=== PATIENT | female | born 1985 | race Two or more races ===

== ENCOUNTER 2020-09-04 14:35 | Outpatient (REF) | payer MEDICAID, SELFPAY | END 2020-09-04 14:36 | disposition home or self-care (01) | LOC: HO.LAB 14:35 | PROVIDERS: Visit Provider Internal Medicine | DX: Z20.822 Contact with and (suspected) exposure to COVID-19 (principal) | CPT/HCPCS: 36415; C9803; U0003; U0005 ==

== ENCOUNTER 2020-09-15 12:52 | Outpatient (REF) | payer MEDICAID, SELFPAY ==
[2020-09-16 09:51] LABS: SARS COV2 PCR INHOUSE POSITIVE (Negative)
== END 2020-09-15 12:53 | disposition home or self-care (01) ==
LOC: HO.LAB 12:52
PROVIDERS: Visit Provider Internal Medicine
DX: Z20.822 Contact with and (suspected) exposure to COVID-19 (principal)
CPT/HCPCS: C9803; U0003

== ENCOUNTER 2022-06-10 03:43 | Emergency (ER) | payer MEDICAID, SELFPAY ==
--- NOTE | 2022-06-10 | ECG_ITS ---
Test Reason : SOB Blood Pressure : / mmHG Vent. Rate : 093 BPM Atrial Rate : 093 BPM P-R Int : 138 ms QRS Dur : 072 ms QT Int : 388 ms P-R-T Axes : 053 058 020 degrees QTc Int : 482 ms Normal sinus rhythm Normal ECG When compared with ECG of 11-NOV-2019 23:24, Nonspecific T wave abnormality no longer evident in Anterolateral leads Referred By: Generic ED Physician Electronically Signed By:DEDRA SCHMIDT MD
[2022-06-10 03:45] VITALS: BP 111/77; PULSE 83; RESP 20; TEMP 36.4; O2SAT 100; BMI 24.9
[2022-06-10 04:07] LABS: MANUAL DIFF FLAG NO
[2022-06-10 04:13] LABS: Basophils Absolute Auto 0.1 X10*3/uL (0.0-0.2); Eosinophils Absolute Auto 0.1 X10*3/uL (0.0-0.4); Eosinophils Percent Auto 1.5 % (0-4); Hematocrit 29.3 % (37.0-47.0); Hemoglobin 8.5 g/dl (12.0-16.0); Imm Gran Abs Auto 0.02 X10*3/uL (0.00-0.03); Imm Gran Pct Auto 0.3 % (0.0-0.4); Lymphocytes Absolute Auto 2.6 X10*3/uL (1.2-4.9); Lymphocytes Percent Auto 37.9 % (20-40); Mean Corpuscular Volume 68.9 fL (80.0-98.0); Mean Platelet Volume 8.9 fL (9.4-12.3); Monocytes Absolute Auto 0.6 X10*3/uL (0.1-1.2); Monocytes Percent Auto 8.5 % (2-11); Neutrophils Absolute Auto 3.5 x10*3/uL (2.0-8.3); Neutrophils Percent Auto 50.8 % (45-73); Platelet Count 412 X10*3/uL (160-400); Red Blood Count 4.25 X10*6/uL (4.20-5.50); Red Cell Distribution Width 17.2 % (11.0-16.0); White Blood Count 6.8 X10*3/uL (4.8-10.8)
[2022-06-10 04:26] LABS: Anion Gap 11 (12-20); Blood Urea Nitrogen 11 mg/dL (9-16); Calcium 8.8 mg/dL (8.4-10.2); Carbon Dioxide 23 mmol/L (22-29); Chloride 108 mmol/L (96-108); Estimated Glomerular Filt Rate > 60; Glucose Random 100 mg/dL (60-115); Potassium 4.2 mmol/L (3.3-5.1); Sodium 138 mmol/L (135-145)
[2022-06-10 04:30] LABS: Troponin-I High Sensitivity < 3.5 ng/L (<3.5-17.0)
--- NOTE | 2022-06-10 07:05 | ED.SOB ---
HPI - SOB/Dyspnea General Chief Complaint: Dyspnea Stated Complaint: Sob Time Seen by Provider: 06/10/22 06:29 Source: patient and physician ophthalmologist Mode of arrival: ambulatory History of Present Illness HPI Narrative: 37-year-old female without significant past medical history presents with 2 days of mild shortness of breath that she denies is associated with any cough, sore throat, fever, chills, nausea, vomiting, at recent travel, use of OCPs or smoking of cigarettes. Related Data Allergies Allergy/AdvReac Type Severity Reaction Status Date / Time Penicillins [PCN] Allergy Unknown RASH Verified 06/10/22 03:50 Review of Systems Review of Systems: Pertinent positives and negatives as stated in HPI. [facility] Past Medical History Source: nursing notes reviewed Social History Social History Advance Directives: No Advance Directives Information Provided: Yes Physical Exam Vital Signs: Vital Signs: Last Vital Signs Temp 97.5 F 06/10/22 07:15 Pulse 72 06/10/22 07:15 Resp 18 06/10/22 07:15 BP 97/63 06/10/22 07:15 Pulse Ox 100 06/10/22 07:15 O2 Del Method 06/10/22 07:15 BMI result Body Mass Index 24.9 VITAL SIGNS: Reviewed. GENERAL: Well developed, well nourished, in no acute distress. HEAD: Normocephalic/atraumatic EYES: PERRLA, EOMI EARS: Ext canals without abnormality, TMs non-bulging and non-erythematous NOSE: Nares patent bilateral OROPHARYNX: no oral lesions noted, posterior pharynx clear and non-erythematous without noted tonsillar enlargement/erythema/exudates NECK: Supple, no adenopathy LUNGS: Normal breath sounds. No adventitious sounds or accessory muscle use. SpO2<100> CARDIOVASCULAR: Regular rate and rhythm without noted murmurs ABDOMEN: Soft, non-tender, non-distended with bowel sounds. SKIN: Inspection of the skin reveals no rashes NEUROLOGIC: Alert and oriented x 4. Medical Decision Making Medical Decision Making MDM Narrative: PERC negative 37-year-old female with presentation most suggestive of possible viral etiology as she has no history of asthma or cigarette smoking. 0729: I reviewed all laboratory investigations and I do note that patient's hemoglobin is 8.5 but she is not hypotensive nor she tachycardic and will need further workup at her primary care office. All viral testing is negative and there is no evidence of leukocytosis or left shift, chemistries are within normal limits. All results discussed with the patient via cell efficiency supervisor she is discharged home in stable condition with requested follow-up with her primary care provider. Differential Diagnosis Differential Diagnoses: The differential diagnosis associated with the presentation includes I will rule out infectious, viral illness, and doubt any cardiopulmonary etiology. Lab Data MDM Lab Attestation statement: I reviewed the patient's lab results. Please see the discussion above Result Diagrams: 06/10/22 04:03 06/10/22 04:03 Labs: Lab Results 06/10/22 06/10/22 06/10/22 Range/Units 04:03 04:03 04:03 WBC 6.8 (4.8-10.8) X10*3/uL RBC 4.25 (4.20-5.50) X10*6/uL Hgb 8.5 L (12.0-16.0) g/dl Hct 29.3 L (37.0-47.0) % MCV 68.9 L (80.0-98.0) fL MCH 20.0 L (27.0-33.0) pg MCHC 29.0 L (31.0-35.0) g/dl RDW 17.2 H (11.0-16.0) % Plt Count 412 H (160-400) X10*3/uL MPV 8.9 L (9.4-12.3) fL Immature Gran % (Auto) 0.3 (0.0-0.4) % Neut % (Auto) 50.8 (45-73) % Lymph % (Auto) 37.9 (20-40) % [place] % (Auto) 8.5 (2-11) % Eos % (Auto) 1.5 (0-4) % Baso % (Auto) 1.0 (0-2) % Lymph # (Auto) 2.6 (1.2-4.9) X10*3/uL [place] # (Auto) 0.6 (0.1-1.2) X10*3/uL Eos # (Auto) 0.1 (0.0-0.4) X10*3/uL Baso # (Auto) 0.1 (0.0-0.2) X10*3/uL Abs Immat Gran (auto) 0.02 (0.00-0.03) X10*3/uL Absolute Neuts (auto) 3.5 (2.0-8.3) x10*3/uL Absolute Nucleated RBC 0.000 (0.0-0.012) X10*3/uL Nucleated RBC % (auto) 0.0 (0.0-0.2) /100WBC Sodium 138 (135-145) mmol/L Potassium 4.2 (3.3-5.1) mmol/L Chloride 108 (96-108) mmol/L Carbon Dioxide 23 (22-29) mmol/L Anion Gap 11 L (12-20) BUN 11 (9-16) mg/dL Creatinine 0.75 (0.5-1.4) mg/dL Estim Creat Clear Calc 87.0 Estimated GFR > 60 Random Glucose 100 (60-115) mg/dL Calcium 8.8 (8.4-10.2) mg/dL Troponin I High Sens < 3.5 (<3.5-17.0) ng/L COVID-19 (JOSE) (Negative) COVID-19 Clin Com Influenza Type A (ALESHA) (Negative) Influenza Type B (ALESHA) (Negative) Influenza A & B Note 06/10/22 06/10/22 Range/Units 06:38 06:38 WBC (4.8-10.8) X10*3/uL RBC (4.20-5.50) X10*6/uL Hgb (12.0-16.0) g/dl Hct (37.0-47.0) % MCV (80.0-98.0) fL MCH (27.0-33.0) pg MCHC (31.0-35.0) g/dl RDW (11.0-16.0) % Plt Count (160-400) X10*3/uL MPV (9.4-12.3) fL Immature Gran % (Auto) (0.0-0.4) % Neut % (Auto) (45-73) % Lymph % (Auto) (20-40) % [place] % (Auto) (2-11) % Eos % (Auto) (0-4) % Baso % (Auto) (0-2) % Lymph # (Auto) (1.2-4.9) X10*3/uL [place] # (Auto) (0.1-1.2) X10*3/uL Eos # (Auto) (0.0-0.4) X10*3/uL Baso # (Auto) (0.0-0.2) X10*3/uL Abs Immat Gran (auto) (0.00-0.03) X10*3/uL Absolute Neuts (auto) (2.0-8.3) x10*3/uL Absolute Nucleated RBC (0.0-0.012) X10*3/uL Nucleated RBC % (auto) (0.0-0.2) /100WBC Sodium (135-145) mmol/L Potassium (3.3-5.1) mmol/L Chloride (96-108) mmol/L Carbon Dioxide (22-29) mmol/L Anion Gap (12-20) BUN (9-16) mg/dL Creatinine (0.5-1.4) mg/dL Estim Creat Clear Calc Estimated GFR Random Glucose (60-115) mg/dL Calcium (8.4-10.2) mg/dL Troponin I High Sens (<3.5-17.0) ng/L COVID-19 (JOSE) Negative (Negative) COVID-19 Clin Com See Note Influenza Type A (ALESHA) Negative (Negative) Influenza Type B (ALESHA) Negative (Negative) Influenza A & B Note See Note Independent Interpretation I performed an independent interpretation of an: EKG Interpretation: Normal sinus rhythm, HR-93, no STEMI, [place]/QRS/QTC is within normal limits. Discharge Plan Discharge Clinical Impression: Shortness of breath, Anemia Patient Disposition: Home, Self-Care Instructions: Anemia (ED), Shortness of Breath (ED) Additional Instructions: 1. Se nota que tiene anemia, a veces puede deberse a per?odos menstruales abundantes y, a menudo, la recomendaci?n es comenzar a donna p?ldoras de yolanda. 2. Debe llamar a la cl?jeferson hoy para programar alyse palma para alyse reevaluaci?n y un manejo ambulatorio adicional. Regrese a la zachary de emergencias por cualquier empeoramiento de los s?ntomas. 1. You are noted to have anemia, sometimes is can be due to heavy menstrual periods and often times the recommendation is for initiation of iron pills. 2. You should call the clinic today to schedule an appointment for re-evaluation and further outpatient management. Return to the ER for any worsening of symptoms. Referrals: [place],[facility] [Primary Care Provider] - (Has anemia will likely need to be started on iron pills.) Print Language: Cypriot
[2022-06-10 07:12] LABS: COVID-19 Test Negative (Negative); IDNOW Serial# 55D5AD1C
[2022-06-10 07:15] VITALS: BP 97/63; PULSE 72; RESP 18; TEMP 36.4; O2SAT 100
[2022-06-10 07:17] LABS: IDNOW Serial# 9DB6401D; Influenza A Negative (Negative); Influenza B2 Negative (Negative)
== END 2022-06-10 07:41 | disposition home or self-care (01) ==
PROVIDERS: Emergency Provider Student in an Organized Health Care Education/Training Program
DX: R06.02 Shortness of breath (principal); D64.9 Anemia, unspecified; Z20.822 Contact with and (suspected) exposure to COVID-19; Z79.899 Other long term (current) drug therapy
CPT/HCPCS: 36415; 80048; 84484; 85025; 87502; 87635; 93005; 99283; 99284

== ENCOUNTER 2022-06-16 08:40 | Emergency (ER) | payer MEDICAID, SELFPAY ==
--- NOTE | 2022-06-16 | ECG_ITS ---
Test Reason : chest pain Blood Pressure : / mmHG Vent. Rate : 081 BPM Atrial Rate : 081 BPM P-R Int : 146 ms QRS Dur : 068 ms QT Int : 382 ms P-R-T Axes : 051 047 034 degrees QTc Int : 443 ms Normal sinus rhythm Normal ECG When compared with ECG of 10-JUN-2022 03:52, No significant change was found Referred By: Generic ED Physician Electronically Signed By:NOAH JOAQUIN
--- NOTE | ~2022-06-16 | XR_ITS ---
EXAMINATION: XR CHEST CLINICAL INFORMATION: Shortness of breath and cough COMPARISON: 10/05/2018 TECHNIQUE: 2 views of the chest were obtained. FINDINGS: No significant abnormality is noted involving the heart, lungs, mediastinum, bony thorax or soft tissues. XR/XR chest 2V IMPRESSION: Unremarkable examination.
[2022-06-16 08:41] VITALS: BP 117/79; PULSE 83; RESP 18; TEMP 36.3; O2SAT 98; BMI 27.3
[2022-06-16 09:03] LABS: MANUAL DIFF FLAG NO
[2022-06-16 09:04] LABS: Basophils Absolute Auto 0.1 X10*3/uL (0.0-0.2); Eosinophils Absolute Auto 0.1 X10*3/uL (0.0-0.4); Eosinophils Percent Auto 1.3 % (0-4); Hematocrit 30.3 % (37.0-47.0); Hemoglobin 8.9 g/dl (12.0-16.0); Imm Gran Abs Auto 0.04 X10*3/uL (0.00-0.03); Imm Gran Pct Auto 0.6 % (0.0-0.4); Lymphocytes Absolute Auto 2.4 X10*3/uL (1.2-4.9); Lymphocytes Percent Auto 34.6 % (20-40); Mean Corpuscular HGB Conc 29.4 g/dl (31.0-35.0); Mean Corpuscular Hemoglobin 20.6 pg (27.0-33.0); Mean Corpuscular Volume 70.3 fL (80.0-98.0); Mean Platelet Volume 8.8 fL (9.4-12.3); Monocytes Absolute Auto 0.6 X10*3/uL (0.1-1.2); Monocytes Percent Auto 8.8 % (2-11); Neutrophils Absolute Auto 3.7 x10*3/uL (2.0-8.3); Neutrophils Percent Auto 53.7 % (45-73); Platelet Count 347 X10*3/uL (160-400); Red Blood Count 4.31 X10*6/uL (4.20-5.50); Red Cell Distribution Width 19.8 % (11.0-16.0)
[2022-06-16 09:21] LABS: Alanine Aminotransferase 10 U/L (0-31); Albumin Level 3.7 g/dL (3.5-5.0); Alkaline Phosphatase 61 U/L (39-117); Anion Gap 11 (12-20); Aspartate Amino Transferase 13 U/L (5-31); Bilirubin Total 0.2 mg/dL (0.0-1.0); Blood Urea Nitrogen 8 mg/dL (9-16); Calcium 8.9 mg/dL (8.4-10.2); Carbon Dioxide 23 mmol/L (22-29); Chloride 110 mmol/L (96-108); Creatinine Clr Calc Pharmacy 103.6; Estimated Glomerular Filt Rate > 60; Glucose Random 94 mg/dL (60-115); Potassium 4.7 mmol/L (3.3-5.1); Sodium 139 mmol/L (135-145); Total Protein 6.6 g/dL (6.5-8.0)
--- NOTE | 2022-06-16 09:46 | ED.GENADULT ---
HPI - General Adult General Chief complaint: General Medical Stated complaint: CP Time Seen by Provider: 06/16/22 09:44 Source: patient and family Mode of arrival: ambulatory Limitations: no limitations Related Data Previous Rx's Medication Instructions Recorded ferrous sulfate 325 mg (65 mg 325 mg PO DAILY #90 tabs 06/16/22 iron) tablet (Iron (ferrous sulfate)) Allergies Allergy/AdvReac Type Severity Reaction Status Date / Time Penicillins [PCN] Allergy Unknown RASH Verified 06/16/22 08:50 Review of Systems Review of Systems: Review of systems: General: Patient denies any fever chills recent illness or falls Musculoskeletal: Denies back pain or body aches or other injuries HEENT: denies headache, runny nose, ear pain Respiratory: shortness of breath, cough Cardiovascular: no chest pain or palpitations : denies dysuria, frequency Abdomen: no nausea vomiting denies abdominal pain Extremities: no swelling, no pain Skin: no diaphoresis Yes all other systems are reviewed and are negative PMFSH Social History Social History Advance Directives: No Advance Directives Information Provided: Yes Physical Exam ED Vital Signs: Vital Signs - 24 hr 06/16/22 08:41 Temperature 97.4 F Pulse Rate 83 Respiratory Rate 18 Blood Pressure 117/79 Pulse Oximetry 98 Oxygen Delivery Method Room Air BMI result Body Mass Index 27.3 General: Well-appearing well-nourished in no signs of distress HEENT: Normocephalic atraumatic Neck: No signs of JVD, no masses no tenderness or lymphadenopathy Cardiovascular: Regular rate and rhythm Respiratory: Clear to auscultation bilaterally Abdomen: Soft nontender no masses rectal exam performed guiac negative quality system manager confirmed. Extremities: Normal pedal pulses no signs of edema Skin: Dry warm no rashes Back: No tenderness full ROM Medical Decision Making Medical Decision Making [facility] Narrative: XR is normal anemia is improved I will start on iron sulfate and discharge the patient home with PCp christopher falk. Differential Diagnosis Differential Diagnoses: The differential diagnosis associated with the presentation includes Anemia PE, pneumonia. Unlikely PE with normal vitals no signs of respiratory distress not tachycardic or hypoxic, pneumonia this time as she is complaining of cough. Anemia most likely but is improved. She has an appointment next week I will start her on iron. Lab Data [facility] Lab Attestation statement: I reviewed the patient's lab results. Result Diagrams: 06/16/22 08:56 06/16/22 08:56 Labs: Lab Results 06/16/22 06/16/22 Range/Units 08:56 08:56 WBC 7.0 (4.8-10.8) X10*3/uL RBC 4.31 (4.20-5.50) X10*6/uL Hgb 8.9 L (12.0-16.0) g/dl Hct 30.3 L (37.0-47.0) % MCV 70.3 L (80.0-98.0) fL MCH 20.6 L (27.0-33.0) pg MCHC 29.4 L (31.0-35.0) g/dl RDW 19.8 H (11.0-16.0) % Plt Count 347 (160-400) X10*3/uL MPV 8.8 L (9.4-12.3) fL Immature Gran % (Auto) 0.6 H (0.0-0.4) % Neut % (Auto) 53.7 (45-73) % Lymph % (Auto) 34.6 (20-40) % [place] % (Auto) 8.8 (2-11) % Eos % (Auto) 1.3 (0-4) % Baso % (Auto) 1.0 (0-2) % Lymph # (Auto) 2.4 (1.2-4.9) X10*3/uL [place] # (Auto) 0.6 (0.1-1.2) X10*3/uL Eos # (Auto) 0.1 (0.0-0.4) X10*3/uL Baso # (Auto) 0.1 (0.0-0.2) X10*3/uL Abs Immat Gran (auto) 0.04 H (0.00-0.03) X10*3/uL Absolute Neuts (auto) 3.7 (2.0-8.3) x10*3/uL Absolute Nucleated RBC 0.000 (0.0-0.012) X10*3/uL Nucleated RBC % (auto) 0.0 (0.0-0.2) /100WBC Sodium 139 (135-145) mmol/L Potassium 4.7 (3.3-5.1) mmol/L Chloride 110 H (96-108) mmol/L Carbon Dioxide 23 (22-29) mmol/L Anion Gap 11 L (12-20) BUN 8 L (9-16) mg/dL Creatinine 0.74 (0.5-1.4) mg/dL Estim Creat Clear Calc 103.6 Estimated GFR > 60 Random Glucose 94 (60-115) mg/dL Calcium 8.9 (8.4-10.2) mg/dL Total Bilirubin 0.2 (0.0-1.0) mg/dL AST 13 (5-31) U/L ALT 10 (0-31) U/L Alkaline Phosphatase 61 (39-117) U/L Total Protein 6.6 (6.5-8.0) g/dL Albumin 3.7 (3.5-5.0) g/dL Independent Interpretation I performed an independent interpretation of an: EKG Interpretation: Rate 81 no change from previous no signs of ischemia normal intervals Radiology Impression Discussion of test interpretation with radiology: I have reviewed the radiologist's reading. Radiologist Impression: XR is unremarkable Discharge Plan Discharge Clinical Impression: Shortness of breath, Anemia Patient Disposition: Home, Self-Care Instructions: Anemia (ED), Shortness of Breath (ED) Additional Instructions: Por favor sigue al palma con paulino doctor. Tambien necesita donna los pastillas de iron. Si tiene dolor de [place] or si siente que le falta mas aire por favor regresa al hospital Prescriptions: New ferrous sulfate [Iron (ferrous sulfate)] 325 mg (65 mg iron) tablet 325 mg PO DAILY Qty: 90 0RF Stand Alone Forms: Work/School Release Print Language: Ethiopian
[2022-06-16 10:23] VITALS: BP 100/53; PULSE 69; RESP 16; TEMP 36.6; O2SAT 99
== END 2022-06-16 10:33 | disposition home or self-care (01) ==
PROVIDERS: Emergency Provider Student in an Organized Health Care Education/Training Program
DX: R07.89 Other chest pain (principal); R06.02 Shortness of breath; D64.9 Anemia, unspecified; Z79.899 Other long term (current) drug therapy
CPT/HCPCS: 36415; 71046; 80053; 85025; 93005; 99283; 99284

== ENCOUNTER 2022-06-22 23:52 | Emergency (ER) | payer MEDICAID, SELFPAY ==
[2022-06-22 23:54] VITALS: BP 122/70; PULSE 104; RESP 20; TEMP 36.6; O2SAT 100; BMI 25.7
--- NOTE | 2022-06-23 | ECG_ITS ---
Test Reason : chest pain Blood Pressure : / mmHG Vent. Rate : 105 BPM Atrial Rate : 105 BPM P-R Int : 132 ms QRS Dur : 072 ms QT Int : 370 ms P-R-T Axes : 057 060 003 degrees QTc Int : 489 ms Sinus tachycardia Nonspecific T wave abnormality Abnormal ECG When compared with ECG of 16-JUN-2022 08:50, Nonspecific T wave abnormality now evident in Lateral leads Referred By: Generic ED Physician Electronically Signed By:Benji Stephen
[2022-06-23 00:10] LABS: MANUAL DIFF FLAG NO
[2022-06-23 00:12] LABS: Basophils Absolute Auto 0.1 X10*3/uL (0.0-0.2); Basophils Percent Auto 0.9 % (0-2); Eosinophils Absolute Auto 0.1 X10*3/uL (0.0-0.4); Eosinophils Percent Auto 1.5 % (0-4); Hematocrit 35.7 % (37.0-47.0); Hemoglobin 10.9 g/dl (12.0-16.0); Imm Gran Abs Auto 0.03 X10*3/uL (0.00-0.03); Imm Gran Pct Auto 0.3 % (0.0-0.4); Lymphocytes Absolute Auto 2.7 X10*3/uL (1.2-4.9); Lymphocytes Percent Auto 30.1 % (20-40); Mean Corpuscular HGB Conc 30.5 g/dl (31.0-35.0); Mean Corpuscular Hemoglobin 22.1 pg (27.0-33.0); Mean Corpuscular Volume 72.4 fL (80.0-98.0); Mean Platelet Volume 9.2 fL (9.4-12.3); Monocytes Absolute Auto 0.6 X10*3/uL (0.1-1.2); Monocytes Percent Auto 6.4 % (2-11); Neutrophils Absolute Auto 5.5 x10*3/uL (2.0-8.3); Neutrophils Percent Auto 60.8 % (45-73); Platelet Count 388 X10*3/uL (160-400); Red Blood Count 4.93 X10*6/uL (4.20-5.50); Red Cell Distribution Width 23.9 % (11.0-16.0); White Blood Count 9.1 X10*3/uL (4.8-10.8)
[2022-06-23 00:31] LABS: Alanine Aminotransferase 15 U/L (0-31); Albumin Level 4.2 g/dL (3.5-5.0); Alkaline Phosphatase 62 U/L (39-117); Anion Gap 10 (12-20); Aspartate Amino Transferase 15 U/L (5-31); Bilirubin Total 0.3 mg/dL (0.0-1.0); Blood Urea Nitrogen 12 mg/dL (9-16); Calcium 9.2 mg/dL (8.4-10.2); Carbon Dioxide 24 mmol/L (22-29); Chloride 107 mmol/L (96-108); Creatinine Clr Calc Pharmacy 90.5; Estimated Glomerular Filt Rate > 60; Glucose Random 105 mg/dL (60-115); Potassium 3.7 mmol/L (3.3-5.1); Sodium 137 mmol/L (135-145); Total Protein 7.6 g/dL (6.5-8.0)
[2022-06-23 00:49] VITALS: O2SAT 100
[2022-06-23 00:50] LABS: Influenza A PCR NEGATIVE (Negative); Influenza B PCR NEGATIVE (Negative); Resp Syncy Virus RNA Qual PCR NEGATIVE (Negative); SARS COV2 PCR INHOUSE NEGATIVE (Negative)
--- NOTE | 2022-06-23 01:01 | ED.URI ---
HPI - URI/Sore Throat General Chief Complaint: Upper Respiratory Symptoms Stated Complaint: CP, congestion Time Seen by Provider: 06/23/22 00:45 Source: patient Mode of arrival: ambulatory Limitations: no limitations History of Present Illness HPI Narrative: Patient with history of anemia on iron tablets with history of chronic back pain comes here for cough congestion for last few days feel short of breath when ambulates with chest tightness and back pain patient previous hemoglobin was 8.9 on 06/16/2022 today hemoglobin is 10.9 patient denies any palpitation no leg swelling or pain no fever or chills Related Data Previous Rx's Medication Instructions Recorded ferrous sulfate 325 mg (65 mg 325 mg PO DAILY #90 tabs 06/16/22 iron) tablet (Iron (ferrous sulfate)) benzonatate 200 mg capsule 200 mg PO TID PRN cough #20 caps 06/23/22 cyclobenzaprine 10 mg tablet 10 mg PO Q8H #20 tabs 06/23/22 tramadol 50 mg tablet 50 mg PO Q6H PRN pain #20 tabs 06/23/22 Allergies Allergy/AdvReac Type Severity Reaction Status Date / Time Penicillins [PCN] Allergy Unknown RASH Verified 06/23/22 00:09 Review of Systems Review of Systems: Yes all other systems are reviewed and are negative [facility] Social History Social History Alcohol intake: never Smoked in Last 30 Days: No Use of substances other than those prescribed or required for medical reasons: No Advance Directives: No Patient : No Physical Exam Vital Signs: Vital Signs: Last Vital Signs Temp 97.5 F 06/23/22 01:09 Pulse 78 06/23/22 01:09 Resp 16 06/23/22 01:09 BP 113/74 06/23/22 01:09 Pulse Ox 100 06/23/22 01:09 O2 Del Method 06/23/22 01:09 BMI result Body Mass Index 25.7 Appearance: Alert. Oriented X3. No acute distress. Eyes: Pallor ENT: Pharynx normal. Oral Mucosa moist Neck: Normal inspection. Neck supple. CVS: Normal heart rate and rhythm. Pulses normal. Respiratory: No respiratory distress. Equal air entry bilateral, prolonged expiration Abdomen: Soft and nontender. Bowel sounds are present, no mass palpable, Skin: Skin warm and dry. Normal skin color. Normal skin turgor. Extremities: No lower extremity edema. No calf tenderness diffuse lower back tenderness no midline spinal tenderness SLR negative bilaterally Neuro: Oriented X 3. No motor deficit. Medical Decision Making Lab Data [facility] Lab Attestation statement: I reviewed the patient's lab results. 06/23/22 00:05 06/23/22 00:05 Labs: Lab Results 06/23/22 06/23/22 06/23/22 Range/Units 00:05 00:05 00:05 WBC 9.1 (4.8-10.8) X10*3/uL RBC 4.93 (4.20-5.50) X10*6/uL Hgb 10.9 L D (12.0-16.0) g/dl Hct 35.7 L (37.0-47.0) % MCV 72.4 L (80.0-98.0) fL MCH 22.1 L (27.0-33.0) pg MCHC 30.5 L (31.0-35.0) g/dl RDW 23.9 H (11.0-16.0) % Plt Count 388 (160-400) X10*3/uL MPV 9.2 L (9.4-12.3) fL Immature Gran % (Auto) 0.3 (0.0-0.4) % Neut % (Auto) 60.8 (45-73) % Lymph % (Auto) 30.1 (20-40) % [place] % (Auto) 6.4 (2-11) % Eos % (Auto) 1.5 (0-4) % Baso % (Auto) 0.9 (0-2) % Lymph # (Auto) 2.7 (1.2-4.9) X10*3/uL [place] # (Auto) 0.6 (0.1-1.2) X10*3/uL Eos # (Auto) 0.1 (0.0-0.4) X10*3/uL Baso # (Auto) 0.1 (0.0-0.2) X10*3/uL Abs Immat Gran (auto) 0.03 (0.00-0.03) X10*3/uL Absolute Neuts (auto) 5.5 (2.0-8.3) x10*3/uL Absolute Nucleated RBC 0.000 (0.0-0.012) X10*3/uL Nucleated RBC % (auto) 0.0 (0.0-0.2) /100WBC Sodium 137 (135-145) mmol/L Potassium 3.7 D (3.3-5.1) mmol/L Chloride 107 (96-108) mmol/L Carbon Dioxide 24 (22-29) mmol/L Anion Gap 10 L (12-20) BUN 12 (9-16) mg/dL Creatinine 0.73 (0.5-1.4) mg/dL Estim Creat Clear Calc 90.5 Estimated GFR > 60 Random Glucose 105 (60-115) mg/dL Calcium 9.2 (8.4-10.2) mg/dL Total Bilirubin 0.3 (0.0-1.0) mg/dL AST 15 (5-31) U/L ALT 15 (0-31) U/L Alkaline Phosphatase 62 (39-117) U/L Total Protein 7.6 (6.5-8.0) g/dL Albumin 4.2 (3.5-5.0) g/dL Influenza Type A (PCR) NEGATIVE (Negative) Influenza Type B (PCR) NEGATIVE (Negative) RSV RNA Qual (PCR) NEGATIVE (Negative) SARS-CoV-2 RNA (RT-PCR) NEGATIVE (Negative) Independent Interpretation I performed an independent interpretation of an: EKG Interpretation: Sinus tachycardia heart rate [address] T wave changes no acute ischemia Discharge Plan Discharge Clinical Impression: Acute bronchitis, Chronic back pain Patient Disposition: Home, Self-Care Instructions: Acute Bronchitis (ED), Chronic Back Pain (DC) Additional Instructions: Continue iron tablet daily as prescribed by PCP Cough drops as prescribed Pain medication muscle relaxant as prescribed Follow with PCP Your chest x-ray negative for pneumonia Your COVID/flu/RSV negative Contin?e con la tableta de yolanda diariamente seg?n lo prescrito por el PCP Pastillas para la tos seg?n lo prescrito Medicamentos para el dolor relajantes musculares seg?n lo prescrito Seguir con PCP Lopes radiograf?a de t?rax negativa para neumon?a. Lopes COVID/gripe/RSV negativo Prescriptions: New cyclobenzaprine 10 mg tablet 10 mg PO Q8H Qty: 20 0RF benzonatate 200 mg capsule 200 mg PO TID PRN (Reason: cough) Qty: 20 0RF tramadol 50 mg tablet 50 mg PO Q6H PRN (Reason: pain) Qty: 20 0RF No Action ferrous sulfate [Iron (ferrous sulfate)] 325 mg (65 mg iron) tablet 325 mg PO DAILY Qty: 90 0RF Print Language: Slovak
[2022-06-23 01:09] VITALS: BP 113/74; PULSE 78; RESP 16; TEMP 36.4; O2SAT 100
[2022-06-23] MEDS: traMADoL HCL 50 MG TABLET PO (01:20)
--- NOTE | 2022-06-23 01:20 | PC.NURSE ---
PT A&Ox4, reports chest tightness, stuffy nose, abd 9/10 back pain. VSS. Meds given as documented.
[2022-06-23] MEDS: Benzonatate 100 MG CAPSULE 200 MG PO (01:21)
[2022-06-23] MEDS: Cyclobenzaprine HCl 10 MG TABLET PO (01:21)
== END 2022-06-23 01:28 | disposition home or self-care (01) ==
PROVIDERS: Emergency Provider Internal Medicine
DX: J20.9 Acute bronchitis, unspecified (principal); G89.29 Other chronic pain; M54.50 Low back pain, unspecified; Z20.822 Contact with and (suspected) exposure to COVID-19; Z20.828 Contact with and (suspected) exposure to other viral communicable diseases
CPT/HCPCS: 0241U; 36415; 80053; 85025; 93005; 99283; 99285

== ENCOUNTER 2022-08-30 21:26 | Emergency (ER) | payer MEDICAID, SELFPAY ==
[2022-08-30 21:56] VITALS: BP 113/73; PULSE 96; RESP 20; TEMP 36.8; O2SAT 100; BMI 29.5
[2022-08-30 22:22] LABS: MANUAL DIFF FLAG NO
[2022-08-30 22:23] LABS: Basophils Absolute Auto 0.1 X10*3/uL (0.0-0.2); Basophils Percent Auto 0.6 % (0-2); Eosinophils Absolute Auto 0.1 X10*3/uL (0.0-0.4); Eosinophils Percent Auto 0.9 % (0-4); Hematocrit 35.2 % (37.0-47.0); Hemoglobin 11.6 g/dl (12.0-16.0); Imm Gran Abs Auto 0.03 X10*3/uL (0.00-0.03); Imm Gran Pct Auto 0.3 % (0.0-0.4); Lymphocytes Absolute Auto 2.6 X10*3/uL (1.2-4.9); Lymphocytes Percent Auto 25.9 % (20-40); Mean Corpuscular Hemoglobin 26.5 pg (27.0-33.0); Mean Corpuscular Volume 80.5 fL (80.0-98.0); Mean Platelet Volume 8.8 fL (9.4-12.3); Monocytes Absolute Auto 0.7 X10*3/uL (0.1-1.2); Monocytes Percent Auto 6.9 % (2-11); Neutrophils Absolute Auto 6.5 x10*3/uL (2.0-8.3); Neutrophils Percent Auto 65.4 % (45-73); Platelet Count 365 X10*3/uL (160-400); Red Blood Count 4.37 X10*6/uL (4.20-5.50); Red Cell Distribution Width 15.3 % (11.0-16.0); White Blood Count 9.9 X10*3/uL (4.8-10.8)
[2022-08-30 22:39] LABS: Anion Gap 14 (12-20); Blood Urea Nitrogen 15 mg/dL (9-16); Calcium 8.7 mg/dL (8.4-10.2); Carbon Dioxide 21 mmol/L (22-29); Chloride 108 mmol/L (96-108); Creatinine Clr Calc Pharmacy 81.2; Estimated Glomerular Filt Rate > 60; Glucose Random 92 mg/dL (60-115); Potassium 3.7 mmol/L (3.3-5.1); Sodium 139 mmol/L (135-145)
[2022-08-31] MEDS: Ibuprofen 400 MG TABLET PO (01:08)
[2022-08-31] MEDS: Acetaminophen 325 MG TABLET 975 MG PO (01:08)
--- NOTE | 2022-08-31 01:12 | ED_ITS ---
HPI - Female Genitourinary General Chief complaint: Vaginal Bleeding Stated complaint: Vaginal bleeding Time Seen by Provider: 08/31/22 00:30 Source: patient and family (, Abner) Mode of arrival: ambulatory Limitations: language barrier (Patient's 1st language is Portuguese, she does understands some Kazakh, process pumper on the iPad was used) History of Present Illness HPI Narrative: 37-year-old female who presents emergency department for evaluation of dysfunctional bilateral bleeding. She states that her menstrual periods were regular every 28 days but she was having severe bleeding with significant cramping. She was found to have a low hemoglobin of 6. Her doctor treated her with Depo-Provera and iron. She states that since getting the Depo-Provera shot July 2022, her bleeding has been very heavy and irregular. She states that over the past several days she has been going through 4-5 pads per 6 hours and she has been soaking through the pads and has been having blood clots. She also points to her suprapubic area and states she is having strong contractions and cramping sensations. The patient has been managed by her PCP and has not been able to see her field mechanical meter tester at [facility]. She states she is feeling weak, dizzy and lightheaded. She denied fever, chills, nausea, vomiting. Related Data Previous Rx's Medication Instructions Recorded ferrous sulfate 325 mg (65 mg 325 mg PO DAILY #90 tabs 06/16/22 iron) tablet (Iron (ferrous sulfate)) benzonatate 200 mg capsule 200 mg PO TID PRN cough #20 caps 06/23/22 cyclobenzaprine 10 mg tablet 10 mg PO Q8H #20 tabs 06/23/22 tramadol 50 mg tablet 50 mg PO Q6H PRN pain #20 tabs 06/23/22 medroxyprogesterone 10 mg tablet 10 mg PO DAILY #10 tabs 08/31/22 (Provera) Allergies Allergy/AdvReac Type Severity Reaction Status Date / Time Penicillins [PCN] Allergy Unknown RASH Verified 06/23/22 00:09 Review of Systems Review of Systems: Yes all other systems are reviewed and are negative [facility] Past Medical History [facility] Narrative: Past medical history: Tachycardia, anxiety. Past surgical history: . Social history: She denies tobacco, alcohol and drug use. Social History Social History Alcohol intake: never Advance Directives: No Advance Directives Information Provided: Yes Physical Exam Vital Signs: Vital Signs: Last Vital Signs Temp 98.2 F 08/30/22 21:56 Pulse 96 08/30/22 21:56 Resp 20 08/30/22 21:56 BP 113/73 08/30/22 21:56 Pulse Ox 100 08/30/22 21:56 O2 Del Method 08/30/22 21:56 BMI result Body Mass Index 29.5 Const: Other: Awake, alert, female patient, very pleasant cooperative, no distress, answers all questions appropriately. HEENT: Head: Yes normal to inspection, Yes normocephalic and Yes atraumatic Ears: external ears normal General nose exam: Normal external nose present Face and sinus: Yes normal facial exam Mouth: Normal oral and palatal mucosa present Throat: Yes posterior oropharynx normal Eyes: General: appearance normal, both eyes and all related structures Pupils: Equal, round and reactive pupils present Neck: Neck: Yes normal visual inspection, Yes no lymphadenopathy, Yes trachea midline and Yes supple Chest: Chest palpation & inspection: normal inspection of the chest and normal palpation of entire chest wall Resp: Effort & Inspection: normal respiratory effort and able to speak in complete sentences Auscultation: clear to auscultation bilaterally Cardio: Rate: regular rate Rhythm: regular rhythm Heart sounds: S1 normal heart sound present, S2 normal heart sound present and no murmurs GI: Inspection: Yes normal to inspection Palpation (GI): Soft to palpation, Tenderness to palpation present (GI) suprapubicly (Moderate) and no guarding Auscultation: normal bowel sounds : General: Yes no CVA tenderness Back/Spine/Pelvis: Back: no CVA tenderness Skin: General skin exam: no rashes or lesions noted Neuro: Cranial nerves: Yes Equal, round and reactive pupils present Cognition (Neuro): normal cognition Motor exam (neuro): 5/5 motor strength present throughout Extrem: General: Yes normal to inspection Psych: Appearance: grossly normal Speech and movement: Normal speech and movement present Affect: normal affect Attitude: cooperative Medications Administered Discontinued Medications Generic Name Dose Route Start Last Admin Trade Name Freq PRN Reason Stop Dose Admin Acetaminophen 975 mg 08/31/22 00:57 08/31/22 01:08 Acetaminophen 325 Mg Tablet PO 08/31/22 00:58 975 mg ONCE STA Administration Ibuprofen 400 mg 08/31/22 00:57 08/31/22 01:08 Ibuprofen 400 Mg Tablet PO 08/31/22 00:58 400 mg ONCE ONE Administration Medical Decision Making Medical Decision Making [facility] Narrative: 37-year-old female who presents emergency department for evaluation of dysfunctional vaginal bleeding since July 2022 after receiving a Depo Pro vera shot for heavy menses and anemia. Patient states the last several days the bleeding has become heavier, she has had blood clots, she soaked through 5-6 pads in a 6 hour., she was feeling lightheaded, dizzy and having significant cramping in her lower abdomen. Patient's vital signs were normal. The patient's abdominal exam did reveal suprapubic tenderness. I ordered a CBC, BMP, quantitative beta-hCG. 0125: My interpretation of patient's laboratory evaluation as follows: Mild anemia with an H&H of 11.6 and 35.2 this is improved compared to an H&H from 06/16/2022 of 8.9 and 30. BMP was normal. Quantitative beta-hCG is pending. Patient most likely has dysfunctional uterine bleeding of unclear etiology at this time, the patient was treated with ibuprofen 400 mg orally and Tylenol 975 mg orally. She was also given Provera 10 mg orally. Patient was prescribed Provera 10 mg once a day for 10 days, she will be referred to our field mechanical meter tester for further management. Lab Data 08/30/22 22:18 08/30/22 22:18 Labs: Lab Results 08/30/22 08/30/22 Range/Units 22:18 22:18 WBC 9.9 (4.8-10.8) X10*3/uL RBC 4.37 (4.20-5.50) X10*6/uL Hgb 11.6 L (12.0-16.0) g/dl Hct 35.2 L (37.0-47.0) % MCV 80.5 (80.0-98.0) fL MCH 26.5 L (27.0-33.0) pg MCHC 33.0 (31.0-35.0) g/dl RDW 15.3 (11.0-16.0) % Plt Count 365 (160-400) X10*3/uL MPV 8.8 L (9.4-12.3) fL Immature Gran % (Auto) 0.3 (0.0-0.4) % Neut % (Auto) 65.4 (45-73) % Lymph % (Auto) 25.9 (20-40) % [place] % (Auto) 6.9 (2-11) % Eos % (Auto) 0.9 (0-4) % Baso % (Auto) 0.6 (0-2) % Lymph # (Auto) 2.6 (1.2-4.9) X10*3/uL [place] # (Auto) 0.7 (0.1-1.2) X10*3/uL Eos # (Auto) 0.1 (0.0-0.4) X10*3/uL Baso # (Auto) 0.1 (0.0-0.2) X10*3/uL Abs Immat Gran (auto) 0.03 (0.00-0.03) X10*3/uL Absolute Neuts (auto) 6.5 (2.0-8.3) x10*3/uL Absolute Nucleated RBC 0.000 (0.0-0.012) X10*3/uL Nucleated RBC % (auto) 0.0 (0.0-0.2) /100WBC Sodium 139 (135-145) mmol/L Potassium 3.7 (3.3-5.1) mmol/L Chloride 108 (96-108) mmol/L Carbon Dioxide 21 L (22-29) mmol/L Anion Gap 14 (12-20) BUN 15 (9-16) mg/dL Creatinine 0.87 (0.5-1.4) mg/dL Estim Creat Clear Calc 81.2 Estimated GFR > 60 Random Glucose 92 (60-115) mg/dL Calcium 8.7 (8.4-10.2) mg/dL Discharge Plan Discharge Clinical Impression: Dysfunctional uterine bleeding, Abdominal pain Patient Disposition: Home, Self-Care Instructions: Dysfunctional Uterine Bleeding (ED) Additional Instructions: Your blood work today was normal your hemoglobin and hematocrit were good at 11.6 and 35.2 suggesting that we do not have significant anemia despite the bleeding that you been having. Take ibuprofen 200 mg pills, 2 pills every 6 hours as needed for pain. Take Tylenol (acetaminophen) 500 mg pills, 2 pills every 6 hours as needed for pain. Take Provera 10 mg pills, 1 pill once a day for 10 days. Call our field mechanical meter tester tomorrow to try to make a follow-up appointment in 7-10 days. Follow-up with your doctor in 2 days. Please return to the emergency department if your symptoms get worse or if you develop any symptoms that are concerning to you. Prescriptions: New medroxyprogesterone [Provera] 10 mg tablet 10 mg PO DAILY Qty: 10 0RF No Action ferrous sulfate [Iron (ferrous sulfate)] 325 mg (65 mg iron) tablet 325 mg PO DAILY Qty: 90 0RF cyclobenzaprine 10 mg tablet 10 mg PO Q8H Qty: 20 0RF benzonatate 200 mg capsule 200 mg PO TID PRN (Reason: cough) Qty: 20 0RF tramadol 50 mg tablet 50 mg PO Q6H PRN (Reason: pain) Qty: 20 0RF Referrals: Santy Espinosa MD [Physician] - 1 week (Dysfunctional uterine bleeding after receiving Depo-Provera shot July 2022 for heavy menses and anemia with a hemoglobin of 6. H&H now 11.6 and 35.2.)
[2022-08-31] MEDS: medroxyPROGESTERone Acetate 5 MG TABLET 10 MG PO (01:19)
[2022-08-31 01:54] VITALS: BP 121/77; PULSE 84; RESP 16; TEMP 36.8; O2SAT 96
--- NOTE | 2022-08-31 02:03 | PC.NURSE ---
Pt. alert and oriented, sitting in bed with no distress. Pt. reports vaginal bleeding of a moderate amount of bright red blood accompanied by pain at 08/19. Pt. medicated per MAR and pending d/c.
[2022-08-31 02:08] LABS: HCG Quantitative < 2 mIU/mL
== END 2022-08-31 02:12 | disposition home or self-care (01) ==
PROVIDERS: Emergency Provider Emergency Medicine Emergency Medical Services
DX: N93.8 Other specified abnormal uterine and vaginal bleeding (principal); Z79.899 Other long term (current) drug therapy
CPT/HCPCS: 36415; 80048; 84702; 85025; 99283; 99284

== ENCOUNTER 2022-09-05 13:41 | Outpatient (REF) | payer MEDICAID, SELFPAY ==
[2022-09-05 14:39] LABS: Hematocrit 31.8 % (37.0-47.0); Hemoglobin 10.4 g/dl (12.0-16.0); Mean Corpuscular HGB Conc 32.7 g/dl (31.0-35.0); Mean Corpuscular Hemoglobin 26.3 pg (27.0-33.0); Mean Corpuscular Volume 80.5 fL (80.0-98.0); Mean Platelet Volume 8.5 fL (9.4-12.3); Platelet Count 388 X10*3/uL (160-400); Red Blood Count 3.95 X10*6/uL (4.20-5.50); Red Cell Distribution Width 14.4 % (11.0-16.0); White Blood Count 7.6 X10*3/uL (4.8-10.8)
[2022-09-06 05:32] LABS: CT PCR NOT DETECTED (Not Detect.); NG PCR NOT DETECTED (Not Detect.)
[2022-09-06 10:53] LABS: HCG Quantitative < 2 mIU/mL; TSH reflex Free T4 1.59 uIU/mL (0.32-4.0)
[2022-09-09 09:28] LABS: HPV mRNA E6/E7 rflx Not Detected (Not Detected)
== END 2022-09-05 13:42 | disposition home or self-care (01) ==
LOC: HO.LAB 13:41
PROVIDERS: Visit Provider Obstetrics & Gynecology
DX: Z12.4 Encounter for screening for malignant neoplasm of cervix (principal); Z11.51 Encounter for screening for human papillomavirus (HPV); N93.9 Abnormal uterine and vaginal bleeding, unspecified
CPT/HCPCS: 0353U; 84443; 84702; 85027; 87624; 88142; 99202

== ENCOUNTER 2022-11-18 12:56 | Outpatient (REF) | payer MEDICAID, SELFPAY ==
--- NOTE | ~2022-11-18 | US_ITS ---
EXAMINATION: US PELVIS CLINICAL INFORMATION: Abnormal uterine and vaginal bleeding. COMPARISON: Pelvic ultrasound 09/21/2017, CT abdomen and pelvis 06/22/2026. TECHNIQUE: Ultrasound of the pelvis is performed using both transabdominal and transvaginal transducers along with Doppler. Transvaginal imaging is performed due to inadequate visualization transabdominally. FINDINGS: UTERUS: The uterus is anteverted and measures 7.7 x 4.2 x 4.8 cm. The double wall endometrial thickness is 0.7 mm. The uterus is smooth in contour and has normal myometrial echogenicity. Previously seen uterine fibroid not seen on today's exam. ADNEXA: Both ovaries are visualized. There is normal color flow to the adnexa. There is no ovarian torsion. There is no pelvic ascites or fluid collection. Right ovary measures 3.3 x 2.2 x 3.2 cm for a volume of 8.7 mL which includes a 2.5 cm benign simple cyst. Left ovary measures 1.5 x 1.1 x 1.6 cm for a volume of 14.0 mL and appears normal. US/US pelvic and transvaginal IMPRESSION: No significant abnormality is seen.
== END 2022-11-18 12:57 | disposition home or self-care (01) ==
LOC: HO.US 12:56
PROVIDERS: Visit Provider Obstetrics & Gynecology
DX: N93.9 Abnormal uterine and vaginal bleeding, unspecified (principal)
CPT/HCPCS: 76830; 76856

== ENCOUNTER 2022-11-28 21:19 | Emergency (ER) | payer MEDICAID, SELFPAY ==
--- NOTE | 2022-11-28 | ECG_ITS ---
Test Reason : CHEST PAIN Blood Pressure : / mmHG Vent. Rate : 108 BPM Atrial Rate : 108 BPM P-R Int : 128 ms QRS Dur : 070 ms QT Int : 340 ms P-R-T Axes : 052 051 -14 degrees QTc Int : 455 ms Sinus tachycardia Nonspecific T wave abnormality Abnormal ECG When compared with ECG of 23-JUN-2022 00:04, No significant change was found Referred By: Generic ED Physician Electronically Signed By:NOAH JOAQUIN
[2022-11-28 21:26] VITALS: BP 129/89; PULSE 80; RESP 16; TEMP 37.1; O2SAT 98; BMI 29.5
[2022-11-28 21:37] LABS: Hematocrit 42.1 % (37.0-47.0); Mean Corpuscular HGB Conc 33.3 g/dl (31.0-35.0); Mean Corpuscular Hemoglobin 27.2 pg (27.0-33.0); Mean Corpuscular Volume 81.9 fL (80.0-98.0); Platelet Count 417 X10*3/uL (160-400); Red Blood Count 5.14 X10*6/uL (4.20-5.50); Red Cell Distribution Width 16.6 % (11.0-16.0); White Blood Count 11.1 X10*3/uL (4.8-10.8)
[2022-11-28 21:58] LABS: Alanine Aminotransferase 19 U/L (0-31); Albumin Level 4.2 g/dL (3.5-5.0); Alkaline Phosphatase 71 U/L (39-117); Anion Gap 16 (12-20); Aspartate Amino Transferase 16 U/L (5-31); Bilirubin Total 0.2 mg/dL (0.0-1.0); Blood Urea Nitrogen 10 mg/dL (9-16); Calcium 9.7 mg/dL (8.4-10.2); Carbon Dioxide 20 mmol/L (22-29); Chloride 108 mmol/L (96-108); Creatinine Clr Calc Pharmacy 101.9; Estimated Glomerular Filt Rate > 60; Glucose Random 104 mg/dL (60-115); Potassium 3.6 mmol/L (3.3-5.1); Sodium 140 mmol/L (135-145)
[2022-11-28 22:16] LABS: Troponin-I High Sensitivity < 2.7 ng/L (<3.5-17.0)
--- NOTE | 2022-11-28 22:22 | ED_ITS ---
HPI - Chest Pain General Chief Complaint: Chest Pain Stated Complaint: Chest Pain/diff breathing Time Seen by Provider: 11/28/22 21:57 Source: patient Mode of arrival: ambulatory Limitations: no limitations History of Present Illness HPI narrative: Patient history of anxiety been having chest discomfort last 2 days with shortness of breath saturating 100% as difficulty in sleeping as similar episodes in past with anxiety feels anxious now lab workup done prior to my evaluation showed normal high sensitive troponin and with no ischemic changes in the EKG Related Data Previous Rx's Medication Instructions Recorded medroxyprogesterone 10 mg tablet 10 mg PO DAILY #10 tabs 08/31/22 (Provera) ferrous sulfate 325 mg (65 mg 325 mg PO BID 90 days #180 tabs 09/07/22 iron) tablet,delayed release lorazepam 0.5 mg tablet (Ativan) 0.5 mg PO BEDTIME PRN 11/28/22 sleep/anxiety #14 tabs Allergies Allergy/AdvReac Type Severity Reaction Status Date / Time Penicillins [PCN] Allergy Unknown RASH Verified 09/05/22 13:47 Review of Systems Review of Systems: Yes all other systems are reviewed and are negative [facility] Past Medical History Medical History Anxiety Surgical History Hx of section Family History Family History Paternal Aunt Breast CA Mother Ovarian ca Social History Social History Alcohol intake: never Patient Tobacco Use Status: Former Tobacco user Advance Directives: No Advance Directives Information Provided: Yes Physical Exam Vital Signs: Vital Signs: Last Vital Signs Temp 98.8 F 11/28/22 21:26 Pulse 80 11/28/22 21:26 Resp 16 11/28/22 21:26 BP 129/89 11/28/22 21:26 Pulse Ox 98 11/28/22 21:26 O2 Del Method Room Air 11/28/22 21:26 BMI result Body Mass Index 29.5 Appearance: Alert. Oriented X3. No acute distress. Anxious ENT: Pharynx normal. Oral Mucosa moist Neck: Normal inspection. Neck supple. CVS: Normal heart rate and rhythm. Pulses normal. Respiratory: No respiratory distress. Equal air entry bilateral, no wheezing/rales/rhonchi Abdomen: Soft and nontender. Bowel sounds are present, Skin: Skin warm and dry. Normal skin color. Normal skin turgor. Extremities: No lower extremity edema. No calf tenderness Neuro: Oriented X 3. No motor deficit. Medical Decision Making Medical Decision Making [facility] Narrative: Patient with heart score of 0 atypical chest for last 2 days with history of anxiety will discharge patient home Lab Data [facility] Lab Attestation statement: I reviewed the patient's lab results. 11/28/22 21:31 11/28/22 21:31 Labs: Lab Results 11/28/22 11/28/22 11/28/22 Range/Units 21:31 21:31 21:31 WBC 11.1 H (4.8-10.8) X10*3/uL RBC 5.14 D (4.20-5.50) X10*6/uL Hgb 14.0 D (12.0-16.0) g/dl Hct 42.1 D (37.0-47.0) % MCV 81.9 (80.0-98.0) fL MCH 27.2 (27.0-33.0) pg MCHC 33.3 (31.0-35.0) g/dl RDW 16.6 H (11.0-16.0) % Plt Count 417 H (160-400) X10*3/uL MPV 9.0 L (9.4-12.3) fL Absolute Nucleated RBC 0.000 (0.0-0.012) X10*3/uL Nucleated RBC % (auto) 0.0 (0.0-0.2) /100WBC Sodium 140 (135-145) mmol/L Potassium 3.6 (3.3-5.1) mmol/L Chloride 108 (96-108) mmol/L Carbon Dioxide 20 L (22-29) mmol/L Anion Gap 16 (12-20) BUN 10 (9-16) mg/dL Creatinine 0.86 (0.5-1.4) mg/dL Estim Creat Clear Calc 101.9 Estimated GFR > 60 Random Glucose 104 (60-115) mg/dL Calcium 9.7 D (8.4-10.2) mg/dL Total Bilirubin 0.2 (0.0-1.0) mg/dL AST 16 (5-31) U/L ALT 19 (0-31) U/L Alkaline Phosphatase 71 (39-117) U/L Troponin I High Sens < 2.7 (<3.5-17.0) ng/L Total Protein 8.0 (6.5-8.0) g/dL Albumin 4.2 (3.5-5.0) g/dL Independent Interpretation I performed an independent interpretation of an: EKG Interpretation: Sinus tachycardia heart rate 108 beats per minute normal axis normal intervals no acute ischemic changes Discharge Plan Discharge Clinical Impression: Atypical chest pain, Anxiety Patient Disposition: Home, Self-Care Instructions: Noncardiac Chest Pain (ED), Anxiety (ED) Additional Instructions: Take medication to relax and sleep as prescribed every night Follow-up with PCP Prescriptions: New lorazepam [Ativan] 0.5 mg tablet 0.5 mg PO BEDTIME PRN (Reason: sleep/anxiety) Qty: 14 0RF No Action ferrous sulfate 325 mg (65 mg iron) tablet,delayed release (DR/EC) 325 mg PO BID 90 Days Qty: 180 1RF medroxyprogesterone [Provera] 10 mg tablet 10 mg PO DAILY Qty: 10 0RF
[2022-11-28] MEDS: LORazepam 0.5 MG TABLET PO (22:33)
== END 2022-11-28 22:37 | disposition home or self-care (01) ==
PROVIDERS: Emergency Provider Internal Medicine
DX: R07.89 Other chest pain (principal); Z79.899 Other long term (current) drug therapy
CPT/HCPCS: 36415; 80053; 84484; 85027; 93005; 99283; 99284

== ENCOUNTER 2023-03-15 14:32 | Outpatient (REF) | payer MEDICAID, SELFPAY | END 2023-03-15 14:33 | disposition home or self-care (01) | LOC: HO.LNP 14:32 | PROVIDERS: Visit Provider Obstetrics & Gynecology | DX: N93.9 Abnormal uterine and vaginal bleeding, unspecified (principal) | CPT/HCPCS: 58100; 81025; 88305 ==

== ENCOUNTER 2023-03-15 14:32 | Outpatient (AMB) | payer MEDICAID, SELFPAY ==
--- NOTE | 2023-03-15 14:46 | A.OFFVIS_ITS ---
Intake Vital Signs 03/15/23 14:48 Height 5 ft 1 in Weight 154 lb 5.177 oz BMI 29.2 BP 118/74 Intake Visit Reasons: US Follow up/DO NOT RS Maxillofacial Prosthodontist Required: Yes Maxillofacial Prosthodontist Language: Server Security Administrator Name: Fior RENDON Information Interpreted: non-clinical & clinical Lunch Truck Operator: Lunch Truck Operator Present (Fior RENDON) Accompanied by: Daughter Allergies Penicillins [PCN] Allergy (Unknown, Verified 03/15/23 14:49) RASH Is last menstrual period known: Yes Last menstrual period: 03/08/23 PFSH Medical History Anxiety Surgical History Hx of section Family History Paternal Aunt Breast CA Mother Ovarian ca Social History Alcohol intake: never Patient Tobacco Use Status: Former Tobacco user Female Reproductive History Menstrual Age of Menarche: 14 Date of last menstrual period: 03/08/23 Physical Exam Vital Signs: Last Vital Signs BP 118/74 03/15/23 14:48 BMI result Body Mass Index 29.2 Office Procedures Endometrial Biopsy Details: The patient was counseled regarding the indication and benefits of endometrial sampling to rule out endometrial pathology including not limited to endometrial hyperplasia or endometrial cancer and others; The alternatives (Either do nothing vs. hysteroscopy D&C) & the risks were discussed with the patient including but not limited: pain, uterine perforation, bleeding, infection, possible injury to bladder, bowel, ureter, possible need for blood transfusion with all its possible risks. The patient verbalized understanding all questions answered and signed consent. Urine test done in the office was negative The patient was placed into the dorsal lithotomy position; a speculum was inserted in the vagina. Using aseptic technique for the procedure, the cervix was cleansed with Betadine. The anterior lip of the cervix was grasped with a single tooth tenaculum. The uterus was sounded to 7 cm with a 4 mm Pipelle was used. Tissues samples were obtained and placed in formalin, in a patient labeled container and sent to the pathology department. At the end of the procedure, there was minimal bleeding noted The patient tolerated the procedure well and was discharged in good condition with the following instructions: Nothing in the vagina until the bleeding stops. No sex until the bleeding stops, to call if any of the following occurs: fever (>100.4), flu-like symptoms, abdominal pain, heavy bleeding, four smelling vaginal discharge. The patient was instructed to schedule a Follow up appointment in 2 weeks to discuss pathology results of the biopsy and treatment options. This note was generated with a voice recognition program. Some errors may have been overlooked during the review of this note. Sometimes these errors may affect the content or meaning of a given sentence. [id number] Biopsy Assessment & Plan Assessment & Plan Orders: Orders 2 AMB Endometrial Biopsy Today N93.9 - Abnormal uterine and vaginal bleeding, unspecified Coding Level of Care Code Procedure Only CPT Codes Endometrial Biopsy - CPT: 02892-[id number] Biopsy ([id number])
[2023-03-15 14:48] VITALS: BP 118/74; BMI 29.2
== END 2023-03-15 15:07 | disposition home or self-care (01) ==
PROVIDERS: Visit Provider Obstetrics & Gynecology
DX: Z32.02 Encounter for pregnancy test, result negative (principal)
CPT/HCPCS: 58100

== ENCOUNTER 2023-05-03 15:28 | Outpatient (AMB) | payer MEDICAID, SELFPAY ==
--- NOTE | 2023-05-03 15:30 | MHC.OFFVIS ---
Intake Vital Signs 05/03/23 15:32 Height 5 ft 1 in Weight 154 lb 5.177 oz BMI 29.2 BP 122/76 Intake Visit Reasons: EMB follow up Purchasing Administrative Assistant Required: Yes Purchasing Administrative Assistant Language: Oyster Shipper Name: Fior RENDON Information Interpreted: non-clinical & clinical Accompanied by: Daughter Allergies Penicillins [PCN] Allergy (Unknown, Verified 05/03/23 15:33) RASH Is last menstrual period known: Yes Last menstrual period: 04/07/23 HPI HPI Comments History of Present Illness Details The patient is presenting for follow-up to discuss the results of her abnormal uterine bleeding workup and options of treatment. DMPA d/c' ed The following workup was done.: H&H= was 10.4/31.8 in 09/01 went up to 14/42.6 in 12/02 TSH, hCG, GC and chlamydia were negative. Endometrial biopsy pathology showed inactive endometrium with no evidence of hyperplasia and/or malignancy. Co testing was done was negative. Pelvic ultrasound was unremarkable. [facility] Medical History Anxiety Surgical History Hx of section Family History Paternal Aunt Breast CA Mother Ovarian ca Alcohol intake: never Patient Tobacco Use Status: Former Tobacco user Female Reproductive History Menstrual Age of Menarche: 14 Date of last menstrual period: 04/07/23 Review of Systems Const All systems reviewed & are unremarkable except as noted in HPI and below Reports as per HPI and Reports no additional complaints GI Reports no additional complaints Reports no additional complaints Physical Exam Vital Signs: Last Vital Signs BP 122/76 05/03/23 15:32 BMI result Body Mass Index 29.2 Assessment & Plan Assessment & Plan (1) Abnormal uterine bleeding: Code(s): N93.9 - Abnormal uterine and vaginal bleeding, unspecified Plan: Discussed with the patient the results of the work up done and options of treatment including control pills , Mirena IUD, cyclic Provera. All pros, cons, risks and benefits if each option was discussed with the patient and the patient decided to go ahead with [facility] so a more detailed discussion re: control pills including mechanism of action, benefits (regular menses, less dysmenorrhea, less risk of ovarian cancer, ...), risks ( DVT, PE, Strokes, [place], ? increased breast ca, others). Instructions were given to use a back- up method for contraception x 1st 2 weeks, and to schedule a 3 months appointment for blood pressure check Medications: New desogestrel-ethinyl estradiol 0.15-0.03 mg (Apri) 1 tab PO DAILY 28 days 28 tabs 2RF Discontinued medroxyprogesterone (Provera) Discontinued Reason: Doctor's Order 10 mg PO DAILY 10 tabs 0RF Coding Level of Care Code Est Pt Level 3 (00480) Diagnoses Abnormal uterine bleeding N93.9
--- OUTSIDE RECORDS SUMMARY | 2023-05-03 15:30 | XMS_ITS | Patient Health Record ---
Author Name Unknown Organization [facility] Address [address], [place] [id number] Support Name Relationship Address Phone Nitish Warren Emergency Contact [address] [place] [address] Roxie Cameron Guarantor Unknown REASON FOR REFERRAL No Information SOCIAL HISTORY Sex Assigned At : Social History Observation Description Sex Assigned At Unknown PLAN OF TREATMENT No Information Insurance Providers Payer Name Payer Address Payer Phone Subscriber Number Group Number Insured Name Patient Relationship to Insured Coverage Start Date Coverage End Date Insurance - None Need to apply for insurance [id number] [place] [address] Roxie Cameron Self - patient is the insured
[2023-05-03 15:32] VITALS: BP 122/76; BMI 29.2
== END 2023-05-03 15:44 | disposition home or self-care (01) ==
LOC: HO.HWS 15:28
PROVIDERS: Visit Provider Obstetrics & Gynecology
DX: N93.9 Abnormal uterine and vaginal bleeding, unspecified (principal)
CPT/HCPCS: 99213

== ENCOUNTER → 2023-05-03 15:28 | Outpatient (BNVA) | payer MEDICAID, SELFPAY | PROVIDERS: Visit Provider Obstetrics & Gynecology | DX: N93.9 Abnormal uterine and vaginal bleeding, unspecified (principal) | CPT/HCPCS: 99212 ==

== ENCOUNTER 2024-02-27 01:21 | Emergency (ER) | payer MEDICAID, SELFPAY ==
[2024-02-27 01:23] VITALS: BP 114/79; PULSE 120; RESP 18; TEMP 36.8; O2SAT 99; BMI 32.5
--- NOTE | 2024-02-27 02:01 | PC.NURSE ---
Pt a&ox4, no signs of distress Pt ambulates with a steady gait Pt reports 5/10 throat pain, light cough and congestion Pt family at the bedside Pt swabbed and sent to lab Plan of care ongoing.
[2024-02-27 02:15] LABS: IDNOW Serial# 152EDE1D; Influenza A Negative (Negative); Influenza B2 Negative (Negative)
[2024-02-27 02:17] LABS: COVID-19 Test Negative (Negative); IDNOW Serial# 9DB6401D
--- NOTE | 2024-02-27 02:44 | ED.URI ---
HPI - URI/Sore Throat General Chief Complaint: Upper Respiratory Symptoms Stated Complaint: congestion and runny nose, sore throat Time Seen by Provider: 02/27/24 02:22 Source: patient and family Mode of arrival: ambulatory Limitations: language barrier History of Present Illness ED Provider: Dr. Fernandez HPI Narrative: Patient presents with a day of sore throat, cough and nasal congestion. She denies fever. MD elicited complaint: cough, sore throat and nasal congestion Onset (ago): day(s) Consistency: constant Severity: mild Related Data Previous Rx's ?Medication ?Instructions ?Recorded ferrous sulfate 325 mg (65 mg 325 mg PO BID 90 days #180 tabs 09/07/22 iron) tablet,delayed release lorazepam 0.5 mg tablet (Ativan) 0.5 mg PO BEDTIME PRN 11/28/22 sleep/anxiety #14 tabs desogestrel 0.15 mg-ethinyl 1 tab PO DAILY 28 days #28 tabs 05/03/23 estradiol 0.03 mg tablet (Apri) oxymetazoline 0.05 % nasal spray 2 spray intranasal Q12H PRN nasal 02/27/24 (Afrin Sinus (oxymetazoline)) congestion 5 days #22 mL nixtdpiugyyjs-YR-grzrziomejx 5 10 ml PO Q4H PRN cough #237 mL 02/27/24 mg-10 mg-100 mg/5 mL oral liquid Allergies Allergy/AdvReac Type Severity Reaction Status Date / Time Penicillins [PCN] Allergy Unknown RASH Verified 02/27/24 01:26 acetaminophen [From Percocet] Allergy Hives Verified 02/27/24 01:27 oxycodone [From Percocet] Allergy Hives Verified 02/27/24 01:27 Review of Systems Review of Systems: Yes all other systems are reviewed and are negative Neurologic: Denies Sensory deficit (Neuro) PMFSH Past Medical History Medical History Anxiety Surgical History Hx of section Family History Family History Paternal Aunt Breast CA Mother Ovarian ca Social History Social History Alcohol intake: never Patient Tobacco Use Status: Former Tobacco user Smoked in Last 30 Days: No Use of substances other than those prescribed or required for medical reasons: No Advance Directives: No Advance Directives Information Provided: Yes Physical Exam Vital Signs: Vital Signs: Last Vital Signs Temp 98.3 F 02/27/24 01:23 Pulse 120 H 02/27/24 01:23 Resp 18 02/27/24 01:23 BP 114/79 02/27/24 01:23 Pulse Ox 99 02/27/24 01:23 O2 Del Method Room Air 02/27/24 01:23 BMI result Body Mass Index 32.5 Const: General: healthy appearing Nutritional Appearance: average body habitus Orientation/consciousness: oriented to person and patient oriented x3 Limitations: no limitations HEENT: Head: Yes normal to inspection Ears: external ears normal General nose exam: Normal external nose present Mouth: Normal oral and palatal mucosa present and oropharynx normal Throat: Yes posterior oropharynx normal Eyes: General: appearance normal, both eyes and all related structures Neck: Other: supple Neck: Yes normal visual inspection Chest: Chest palpation & inspection: normal inspection of the chest Resp: Auscultation: clear to auscultation bilaterally Cardio: Jugular venous distension: no JVD Rate: regular rate Rhythm: regular rhythm Heart sounds: S1 normal heart sound present and S2 normal heart sound present GI: Inspection: Yes normal to inspection Palpation (GI): Soft to palpation, nontender and No hepatosplenomegaly present Auscultation: normal bowel sounds : General: Yes no CVA tenderness Back/Spine/Pelvis: Back: no CVA tenderness Skin: General skin exam: no rashes or lesions noted Neuro: General: oriented to person and patient oriented x3 Cranial nerves: Yes CN's II-XII intact bilaterally Motor exam (neuro): 5/5 motor strength present throughout Sensory Exam: No Sensory deficit (Neuro) Extrem: General: Yes normal to inspection Psych: Appearance: grossly normal Course Reevaluation(s) Reevaluation #1: flu and covid are negative, patient with viral URI will dc on afrin and robitussin Time: 02:48 Medical Decision Making Differential Diagnosis Differential Diagnoses: The differential diagnosis associated with the presentation includes (Flu, covid, pneumonia, viral URI) Lab Data Labs: Lab Results 02/27/24 Range/Units 01:45 COVID-19 (JOSE) Negative (Negative) COVID-19 Clin Com See Note Influenza Type A (ALESHA) Negative (Negative) Influenza Type B (ALESHA) Negative (Negative) Influenza A & B Note See Note Independent Historian Clinical information obtained from an independent historian. History obtained from or confirmed by: Spouse Tests considered The following testing was considered but not selected: CXR: considered but patient afebrile, normal oxygen and clear lungs Prescription Management I considered prescription management with: Antibiotic (no evidence of pneumonia) Discharge Plan Discharge Clinical Impression: Upper respiratory infection Patient Disposition: Home, Self-Care Instructions: Upper Respiratory Infection (ED), Viral Syndrome (ED) Prescriptions: New oxymetazoline [Afrin Sinus (oxymetazoline)] 0.05 % spray,non-aerosol 2 spray intranasal Q12H PRN (Reason: nasal congestion) 5 Days Qty: 22 0RF amwaxwzmlaerj-WW-ghrzpevjukp 5-10-100 mg/5 mL liquid 10 ml PO Q4H PRN (Reason: cough) Qty: 237 0RF No Action ferrous sulfate 325 mg (65 mg iron) tablet,delayed release (DR/EC) 325 mg PO BID 90 Days Qty: 180 1RF lorazepam [Ativan] 0.5 mg tablet 0.5 mg PO BEDTIME PRN (Reason: sleep/anxiety) Qty: 14 0RF desogestrel-ethinyl estradiol [Apri] 0.15-0.03 mg tablet 1 tab PO DAILY 28 Days Qty: 28 2RF Referrals: [facility] [Primary Care Provider] - 1 week Print Language: [place] Irish
[2024-02-27 03:01] VITALS: BP 116/80; PULSE 100; RESP 20; TEMP 36.8; O2SAT 99
== END 2024-02-27 03:03 | disposition home or self-care (01) ==
PROVIDERS: Emergency Provider Emergency Medicine
DX: J06.9 Acute upper respiratory infection, unspecified (principal); Z11.52 Encounter for screening for COVID-19
CPT/HCPCS: 87502; 87635; 99283; 99284

== ENCOUNTER 2024-06-27 15:53 | Outpatient (REF) | payer MEDICAID, SELFPAY ==
[2024-06-27 17:48] LABS: MANUAL DIFF FLAG NO
[2024-06-27 17:57] LABS: Basophils Absolute Auto 0.1 X10*3/uL (0.0-0.2); Basophils Percent Auto 0.9 % (0-2); Eosinophils Absolute Auto 0.1 X10*3/uL (0.0-0.4); Eosinophils Percent Auto 1.4 % (0-4); Hematocrit 33.8 % (37.0-47.0); Hemoglobin 10.1 g/dl (12.0-16.0); Imm Gran Abs Auto 0.02 X10*3/uL (0.00-0.03); Imm Gran Pct Auto 0.2 % (0.0-0.4); Lymphocytes Absolute Auto 2.5 X10*3/uL (1.2-4.9); Lymphocytes Percent Auto 28.6 % (20-40); Mean Corpuscular HGB Conc 29.9 g/dl (31.0-35.0); Mean Corpuscular Hemoglobin 21.8 pg (27.0-33.0); Mean Corpuscular Volume 72.8 fL (80.0-98.0); Mean Platelet Volume 8.9 fL (9.4-12.3); Monocytes Absolute Auto 0.8 X10*3/uL (0.1-1.2); Monocytes Percent Auto 8.7 % (2-11); Neutrophils Absolute Auto 5.2 x10*3/uL (2.0-8.3); Neutrophils Percent Auto 60.2 % (45-73); Platelet Count 470 X10*3/uL (160-400); Red Blood Count 4.64 X10*6/uL (4.20-5.50); Red Cell Distribution Width 16.4 % (11.0-16.0); White Blood Count 8.6 X10*3/uL (4.8-10.8)
[2024-06-27 18:19] LABS: Alanine Aminotransferase 37 U/L (0-31); Albumin Level 4.2 g/dL (3.5-5.0); Alkaline Phosphatase 72 U/L (39-117); Anion Gap 8 (12-20); Aspartate Amino Transferase 25 U/L (5-31); Bilirubin Total 0.3 mg/dL (0.0-1.0); Blood Urea Nitrogen 10 mg/dL (9-16); Calcium 9.1 mg/dL (8.4-10.2); Carbon Dioxide 24 mmol/L (22-29); Chloride 109 mmol/L (96-108); Cholesterol 170 mg/dL (<200); Estimated Glomerular Filt Rate > 60; Glucose Random 92 mg/dL (60-115); HDL Cholesterol 36 mg/dL (>40); Iron 16 mcg/dL (30-160); LDL Cholesterol Calculated 83 mg/dL (<100); Percent Iron Saturation 4 % (15-50); Potassium 4.1 mmol/L (3.3-5.1); Sodium 137 mmol/L (135-145); Total Iron Binding Capacity 359 mcg/dL (228-428); Total Protein 8.5 g/dL (6.5-8.0); Triglycerides 259 mg/dL (<150); Unsaturated Iron Binding 343 ug/dL
[2024-06-27 18:38] LABS: Ferritin 5 ng/mL (10-122); TSH reflex Free T4 1.24 uIU/mL (0.32-4.0); Vitamin D 25-OH Total 9.7 ng/mL (>30)
[2024-06-28 04:38] LABS: HIV AB/AG Nonreactive (Nonreactive); HIV Num 1 0.07 S/CO (0.00-0.99)
[2024-06-28 05:23] LABS: Estimated Average Glucose 105 mg/dL; Hemoglobin A1C 92.4238 umol/L; Hemoglobin A1c % 5.3 % (<6.0); Total Hemoglobin (HGBA1C) 2666.4435 umol/L
[2024-06-28 14:58] LABS: HCV Log PCR <1.18 NOT DETECTED Log IU/mL (NOT DETECTED); HepC Viral Load <15 NOT DETECTED IU/mL (NOT DETECTED)
[2024-07-02 16:54] LABS: RPR Rapid Plasma Reagin NON-REACTIVE (NON-REACTIVE)
== END 2024-06-27 15:54 | disposition home or self-care (01) ==
LOC: HO.HHCL 15:53
PROVIDERS: Visit Provider Registered Nurse
DX: Z00.00 Encounter for general adult medical examination without abnormal findings (principal); D50.9 Iron deficiency anemia, unspecified
CPT/HCPCS: 36415; 80053; 80061; 82306; 82728; 83036; 83540; 84443; 85025; 86592; 87389; 87522

== ENCOUNTER 2024-08-14 12:41 | Outpatient (REF) | payer MEDICAID, SELFPAY ==
--- NOTE | 2024-08-14 12:49 | PFT_ITS ---
Indication: Cough Spirometry [FEV1 to FVC 85%; FEV1 2.68 L; FVC 3.15 L. significant response to bronchodilators noted.] Lung Volumes [Total capacity 80% predicted; expiratory reserve volume 41% predicted] Diffusion Capacity [DLCO 79% predicted] Comparisons [None] Interpretation [No obstructive nor restrictive ventilatory defects identified. There was a significant response to bronchodilators noted. Lung volumes are normal except for decrease in the expiratory reserve volume secondary to an elevated BMI. Patient does have a very mild diffusion impairment. If asthma is in differential, a methacholine challenge would be helpful for assessing of hyperactive airways. Clinical correlation warranted.] MTDD
[2024-08-14 13:24] VITALS: PULSE 98
--- OUTSIDE RECORDS SUMMARY | 2024-08-14 15:00 | XMS_ITS | Clinical Summary ---
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 Name Role Phone Unavailable Primary Care Provider Unavailabl e Surgical History Surgery Date Site/Laterality Comments SECTION PROCEDURE: OR DELIVERY ONLY Family History Medical History Relation Name Comments Breast cancer Neg Hx Colon cancer Neg Hx Ovarian cancer Neg Hx Prostate cancer Neg Hx Social History Tobacco Use Types Packs/Day Years Used Date Smoking Tobacco: Former Smokeless Tobacco: Never Comments Unknown Sex and Gender Information Value Date Recorded Sex Assigned at Not on file Legal Sex Female 5:43 AM EST Gender Identity Not on file Sexual Orientation Not on file Obstetrics History Plan of Treatment Health Maintenance Due Date Last Done Comments Hepatitis B Vaccines (1 of 3 - 19+ 3-dose series) 2006 Cervical Cancer Screening: P ap Smear 10/18/2020 10/18/2017, 10/18/2017 COVID-19 Vaccine ( - 2023-2 5 season) 2024 Influenza Vaccine (#1) 2024 03/20/2018 DTaP,Tdap,and Td Vaccines (2 - Td or Tdap) 02/17/2028 02/16/2018 HIB Vaccines Aged Out No longer eligi ble based on patient's age to complete this topic HPV Vaccines Aged Out No longer eligi ble based on patient's age to complete this topic Hepatitis A Vaccines Aged Out No long er eligible based on patient's age to complete this topic IPV Vaccines Aged Out No longer eligi ble based on patient's age to complete this topic MMR Vaccines Aged Out No longer eligi ble based on patient's age to complete this topic Meningococcal ACWY Vaccine Aged Out N o longer eligible based on patient's age to complete this topic Meningococcal B Vacine Aged Out No lo nger eligible based on patient's age to complete this topic Pneumococcal Vaccine: Pediatrics (0 to 5 Years) and At-Risk Patients (6 to 64 Years) Aged Out No longer eligible b ased on patient's age to complete this topic RSV Immunization Patients Under 20 months Aged Out No longer eligible b ased on patient's age to complete this topic Varicella Vaccines Aged Out No longer eligible based on patient's age to complete this topic Procedures Procedure Name Priority Date/Time Associated Diagnosis Comments PAP SMEAR Routine 10/18/2017 from Last 3 Months or Most Recently Relevant to Health Maintenance Results * Pap smear (10/18/2017) 10/18/2017 Narrative HISTORICAL TESTING LAB RESULTING AGENCY - 10/23/2017 11:46 AM EDT [id number] RESULTS OF GEN-PROBE APTIMA COMBO 2 ASSAY CHLAMYDIA: ?NEGATIVE N. GONORRHOEAE: ? NEGATIVE GRICELDA RAPHAEL M.D., PATHOLOGIST (CASE ELECTRONICALLY SIGNED 10 23 2017) CLINICAL INFORMATION: Z12.4, Z34.81 Z34.81 ENCOUNTER FOR SUPERVISION OF OTHER NORMAL , FIRST TRIMESTER SOURCE: THINPREP PAP FOR CT/GC GROSS DESCRIPTION: THINPREP VIAL RECEIVED. PHYSICIANS ROXIE STUART/#/ Roxie Stuart CNM LAB CYTOLOGY ORDERABLES Final R esult HISTORICAL TESTING LAB RESULTING AGENCY from Last 3 Months or Most Recently Relevant to Health Maintenance
== END 2024-08-14 12:42 | disposition home or self-care (01) ==
LOC: HO.RESP 12:41
PROVIDERS: PCP Registered Nurse; Visit Provider Registered Nurse
DX: R06.2 Wheezing (principal)
CPT/HCPCS: 94010; 94640; 94727; 94729

== ENCOUNTER → 2024-08-14 12:49 | Outpatient (BNV) | payer MEDICAID, SELFPAY | PROVIDERS: PCP Registered Nurse; Visit Provider Hospitalist | DX: J45.909 Unspecified asthma, uncomplicated (principal) | CPT/HCPCS: 94060; 94727; 94729 ==

== ENCOUNTER 2025-03-07 14:01 | Outpatient (REF) | payer MEDICAID, SELFPAY ==
[2025-03-07 16:04] LABS: MANUAL DIFF FLAG NO
[2025-03-07 16:13] LABS: Hematocrit 33.0 % (37.0-47.0); Hemoglobin 10.4 g/dl (12.0-16.0); Imm Gran Abs Auto 0.05 X10*3/uL (0.00-0.03); Imm Gran Pct Auto 0.5 % (0.0-0.4); Lymphocytes Absolute Auto 2.0 X10*3/uL (1.2-4.9); Mean Corpuscular HGB Conc 31.5 g/dl (31.0-35.0); Mean Corpuscular Hemoglobin 22.8 pg (27.0-33.0); Mean Corpuscular Volume 72.4 fL (80.0-98.0); NRBC Abs Auto 0.000 X10*3/uL (0.0-0.012); NRBC Pct Auto 0.0 /100WBC (0.0-0.2); Platelet Count 491 X10*3/uL (160-400); Red Blood Count 4.56 X10*6/uL (4.20-5.50); White Blood Count 9.6 X10*3/uL (4.8-10.8)
[2025-03-07 16:17] LABS: Hemoglobin A1C 101.8455 umol/L; Total Hemoglobin (HGBA1C) 2692.9868 umol/L
[2025-03-07 16:39] LABS: Cholesterol 185 mg/dL (<200); HDL Cholesterol 37 mg/dL (>40); Iron 30 mcg/dL (30-160); Percent Iron Saturation 8 % (15-50); Total Iron Binding Capacity 368 mcg/dL (228-428); Triglycerides 126 mg/dL (<150); Unsaturated Iron Binding 338 ug/dL
[2025-03-07 16:47] LABS: Ferritin 8 ng/mL (10-122)
== END 2025-03-07 14:02 | disposition home or self-care (01) ==
LOC: HO.HHCL 14:01
PROVIDERS: PCP Registered Nurse; Visit Provider Nurse Practitioner Primary Care
DX: E78.2 Mixed hyperlipidemia (principal); E66.9 Obesity, unspecified; D50.9 Iron deficiency anemia, unspecified
CPT/HCPCS: 36415; 80061; 82306; 82728; 83036; 83540; 84443; 85025